=== PATIENT | female | born 1990 | race American Indian/Alaskan Native ===

== ENCOUNTER 2016-09-29 12:46 | Emergency (ER) | payer SELFPAY ==
[2016-09-29 12:55] VITALS: BMI 23.8
[2016-09-29 12:57] VITALS: TEMP 98.2
--- NOTE | 2016-09-29 13:43 | C.PDOC ---
History Of Present Illness 26 yr old female presents to the ER for evaluation of left facial contusions, sustained today around 11am. Patient states she was walking her dog when she tripped and fell. Patient denies LOC, syncope, vision changes, focal deficits, nausea, vomiting, neck pain, headache, dizziness, weakness or numbness. Ambulate to Ed for evaluation, not in any apparent distress. - HPI Time Seen by Provider: 09/29/16 13:05 Chief Complaint (Nursing): Trauma History Per: Patient History/Exam Limitations: no limitations Onset/Duration Of Symptoms: Hrs Injury Occurred (Timing): Today @ (11 am) Past Medical History Reviewed: Historical Data, Nursing Documentation, Vital Signs Vital Signs: Last Vital Signs Temp 98.2 F 09/29/16 12:56 Pulse 85 09/29/16 12:56 Resp 17 09/29/16 12:56 BP 123/86 09/29/16 12:56 Pulse Ox 98 09/29/16 14:44 Family History: States: No Known Family Hx - Social History Hx Alcohol Use: Yes Hx Substance Use: Yes - Immunization History Hx Tetanus Toxoid Vaccination: No Hx Influenza Vaccination: No Hx Pneumococcal Vaccination: No Review Of Systems Except As Marked, All Systems Reviewed And Found Negative. Eyes: Negative for: Vision Change Gastrointestinal: Negative for: Nausea, Vomiting Musculoskeletal: Negative for: Neck Pain Skin: Positive for: Other (Contusions to the left facial area ) Neurological: Negative for: Weakness, Numbness, Headache, Dizziness Physical Exam - Physical Exam Appears: Well, Non-toxic, No Acute Distress Skin: Warm, Dry, No Rash Head: Normacephalic, Other ((+) Contusion to the left temporal area with mild trace ecchymosis. Tenderness and ecchymosis to the left infraorbital area.) Eye(s): bilateral: Normal Inspection, PERRL, EOMI Ear(s): Bilateral: Normal Nose: Normal, No Epistaxis, No Deformity, No Tenderness Oral Mucosa: Moist, No Drooling Tongue: Normal Appearing Throat: Normal, No Erythema, No Exudate, No Drooling Neck: Normal, Normal ROM, No Midline Cervical Tenderness, Supple Chest: Symmetrical, No Tenderness Cardiovascular: Rhythm Regular, No Murmur Respiratory: Normal Breath Sounds, No Rales, No Rhonchi, No Stridor, No Wheezing Gastrointestinal/Abdominal: Normal Exam, Soft, No Tenderness, No Distention, No Guarding Back: Normal Inspection, No Vertebral Tenderness, No Paraspinal Tenderness Extremity: Normal ROM, No Pedal Edema, No Deformity, No Swelling Extremity: Bilateral: Atraumatic Neurological/Psych: Oriented x3, Normal Speech, Normal Cranial Nerves, Normal Motor, Normal Sensation, Normal Reflexes Gait: Steady ED Course And Treatment O2 Sat by Pulse Oximetry: 98 Pulse Ox Interpretation: Normal - CT Scan/US CT - Maxillofacial Other Rad Studies (CT/US): Read By Radiologist, Radiology Report Reviewed CT/US Interpretation: PROCEDURE: CT MAXILLOFACIAL BONES WITHOUT CONTRAST. HISTORY: injury. COMPARISON: None. TECHNIQUE: Contiguous axial CT images of the maxillofacial bones were obtained. Coronal and sagittal reformats were generated. Radiation dose: Total exam DLP = 713 mGy-cm. FINDINGS: NASAL BONES: Unremarkable. ORBITS: Unremarkable. PARANASAL SINUSES/ MASTOIDS: Clear. MAXILLA: Unremarkable. MANDIBLE/ TEMPOROMANDIBULAR JOINTS: Unremarkable. SKULL BASE: Unremarkable. TEMPORAL BONES: Middle ears and mastoid grossly unremarkable. OTHER FINDINGS: None. IMPRESSION: Unremarkable non contrast enhanced CT of the maxillofacial bones. Progress Note: On re-evaluation, pt is afebrile, hemodynamicaly stable. Non- toxic. Ambulatory in ED with stable giat. Neuorlogiclay intact. Pt has clinical findings c/w facial contusion, head injury. Pt advised OBS 48 hrs for any sign of hea dinjury-return to ED immediately for re-eval. F/u with PMD in 1 -2 days. Medical Decision Making Medical Decision Making: PLAN: * CT - Maxillofacial * POC * Tetanus IM Disposition Counseled Patient/Family Regarding: Studies Performed, Diagnosis, Need For Followup, Rx Given - Disposition Referrals: [facility] [Outside] Disposition: HOME/ ROUTINE Disposition Time: 14:30 Condition: STABLE Additional Instructions: Ice to contusion Tylenol as need for pain Bacitracin to abrasion OBSERVE 48 HRS FOR ANY SIGN OF HEAD INJURY-INTRACTABLE HEADACHE, VOMITING, VISUAL CHANGES, FOCAL DEFICITS-RETURN TO ED IMMEDIATELY FOR RE-EVALUATION. Follow up with PMD In 2-3 days for re-evaluation. Prescriptions: Bacitracin OINT 1 applic TP BID #1 tube Instructions: Facial Contusion (ED) - Clinical Impression Clinical Impression: Facial contusion - PA / CARD GRADER / Resident Statement MD/DO has reviewed & agrees with the documentation as recorded. - Scribe Statement The provider has reviewed the documentation as recorded by the Scribe Lizette Soni All medical record entries made by the Paty were at my direction and personally dictated by me. I have reviewed the chart and agree that the record accurately reflects my personal performance of the history, physical exam, medical decision making, and the department course for this patient. I have also personally directed, reviewed, and agree with the discharge instructions and disposition.
--- NOTE | 2016-09-29 14:29 | CT ---
PROCEDURE: CT MAXILLOFACIAL BONES WITHOUT CONTRAST HISTORY: injury COMPARISON: None TECHNIQUE: Contiguous axial CT images of the maxillofacial bones were obtained. Coronal and sagittal reformats were generated. Radiation dose: Total exam DLP = 713 mGy-cm. FINDINGS: NASAL BONES: Unremarkable. ORBITS: Unremarkable. PARANASAL SINUSES/ MASTOIDS: Clear. MAXILLA: Unremarkable. MANDIBLE/ TEMPOROMANDIBULAR JOINTS: Unremarkable. SKULL BASE: Unremarkable. TEMPORAL BONES: Middle ears and mastoid grossly unremarkable. OTHER FINDINGS: None. IMPRESSION: Unremarkable non contrast enhanced CT of the maxillofacial bones.
[2016-09-29 15:21] VITALS: BP 125/83; PULSE 84; RESP 18; O2SAT 100
== END 2016-09-29 15:20 | disposition home or self-care (01) ==
LOC: C.ER 12:46
DX: S00.83XA Contusion of other part of head, initial encounter (principal); W01.0XXA Fall on same level from slipping, tripping and stumbling without subsequent striking against object, initial encounter; Y93.K1 Activity, walking an animal